=== PATIENT | female | born 1985 | race Caucasian/White ===

== ENCOUNTER 2019-03-07 13:35 | Inpatient (IN) | payer OTHER ==
[~2019-03-07] VITALS: Ht 175.3 cm; Wt 72.6 kg
[2019-03-31] MEDS ORDERED: PRENATAL TABLE1 EAC1 PO (08:38)
== END 2019-04-02 13:40 | disposition home or self-care (01) | DRG 807 ==
LOC: LDR → OB/GYN 03-31 16:13 → SURG-SUITE 03-31 16:18 → LDR 04-02 13:34 → SURG-SUITE 04-02 13:40
PROVIDERS: ADMIT Obstetrics & Gynecology
PROC: 10E0XZZ Delivery of Products of Conception, External Approach (ICD-10-PCS; principal; 2019-03-31)
PROC: 0HQ9XZZ Repair Perineum Skin, External Approach (ICD-10-PCS; 2019-03-31)
PROC: 3E033VJ Introduction of Other Hormone into Peripheral Vein, Percutaneous Approach (ICD-10-PCS; 2019-03-31)
PROC: 10907ZC Drainage of Amniotic Fluid, Therapeutic from Products of Conception, Via Natural or Artificial Opening (ICD-10-PCS; 2019-03-31)
PROC: 4A1HXCZ Monitoring of Products of Conception, Cardiac Rate, External Approach (ICD-10-PCS; 2019-03-31)
DX: O70.0 First degree perineal laceration during delivery (principal); Z37.0 Single live birth; Z3A.39 39 weeks gestation of pregnancy

== ENCOUNTER 2019-03-29 12:44 | Outpatient (CLI) | payer OTHER | END 2019-03-29 12:51 | disposition home or self-care (01) | LOC: NST 12:44 | DX: Z34.83 Encounter for supervision of other normal pregnancy, third trimester (principal) ==